=== PATIENT | female | born 1950 | race African-American/Black ===

== ENCOUNTER → 2019-05-13 | Outpatient (CLI) | payer OTHER ==
[~2019-05-13] VITALS: Ht 165.1 cm; Wt 75.3 kg
[~2019-05-13] MED LIST: ABILIFY 2 MG2 M1 PO; ALEVE220 M1 PO; AMITIZA 24 MCG24 MC1 PO; BENTYL 20 MG TA20 M1 PO; CLARITIN10 M3 PO; CYMBALTA60 MG PO; FISH OIL 1,001000 M3 PO; LIPITOR 20 MG T20 M1 PO; MOBIC15 MG PO; OMEPRAZOLE 20 M20 M1 PO; VITAMIN C250 MG PO; VITAMIN D22000 UNIT PO; VITAMIN E1000 UNIT PO; XANAX 0.5 MG0.5 MG PO; juice plus PO
[2019-05-13 13:40] VITALS: BP 131/77
--- NOTE | 2019-05-13 13:45 | NUR ---
Pain Clinic Assessment: 1. History of Osteoarthritis: right wrist right elbow History of Rheumatoid Arthritis: Not Applicable 2. Height: 5 ft. 5 in. 165.1 cm. Weight: 166.0 lb. oz. 75.297 kg. Patient's BMI: 27.6 3. Vital Signs: BP: 131/77 Pulse: 79 Resp: 16 Temp: 02 Sat: 100 ECG Mon: 4. Pain Intensity: 8 when on right side 5. Fall Risk: Dizziness: N Needs help standing or walking: N Fallen in the last 3 months: N Fall risk comments: 6. Patient on Blood Thinner: None 7. History of Hypertension: N 8. Opioid Therapy greater than 6 weeks: N Opiate Contract Signed: 9. Risk Assessment Tool Provided: low-1 10. Functional Assessment Tool: 0 11. Recreational Drug Use: Never Drug Type: Tobacco Use: Never Smoker Tobacco Type: Amount or Packs/day: How Many Years: Alcohol Use: Yes Frequency: Special Occasions Quant: 1
--- NOTE | 2019-05-25 09:02 | HPC ---
[facility] [place] [address] PAIN MANAGEMENT CONSULTATION Name: FAVIOLA SAUNDERS Room #: REG GEORGIE RuizDuranMeganDuran#: [id number] Admission: 05/13/19 Attend Phys: Renetta Salter MD Discharge: Date of : 52 Report #: [id number] THIS REPORT FOR: cc: Adele Tineo MD,Adele Salter,Renetta Friedman MD ~ CC: Adele Salter DATE OF SERVICE: 05/13/2019 CHIEF COMPLAINT: Pain in the right hip area. HISTORY: The patient is a 68-year-old female who has been referred to the pain clinic because of pain and discomfort involving her right side. Sometimes has some pain that radiates into the right groin area. States that she has used a roll of towels on the left side, sometimes to take the pressure off. She has not had physical therapy. She has not had chiropractic treatment. Notes that the pain is most problematic if she is lying down and when she turns over onto the affected side. Does have some pain in her right knee. Pain has been more problematic over the last couple of months. Describes her discomfort as periodic, primarily painful when she lies on her right side. Also, describes it as crushing. Rates it as a 0/10 today. ALLERGIES: No known drug allergies. CURRENT MEDICATIONS: Amitiza b.i.d., Xanax 0.5 mg t.i.d., Lipitor 20 mg, Loratadine 10 mg, Duloxetine 60 mg, omeprazole 40 mg, dicyclomine 20 mg 4 times daily, Abilify 2 mg has been used in the past, but discontinued, Trintellix 20 mg and 10 mg, tramadol 50 mg p.r.n. every 8 hours, Effexor XR 150 mg. PAST MEDICAL HISTORY: Irritable bowel syndrome, hypercholesterolemia, depression/anxiety, ulcers and glaucoma. PAST SURGICAL HISTORY: Colon surgery 2016 and the cyst removal on the left wrist 2017, hysterectomy was in 2003, fibroid tumors in both breasts, ulcer. SOCIAL HISTORY: She is retired. REVIEW OF SYSTEMS: Generally good health, wears glasses, depression, insomnia. LABORATORY DATA: No new laboratory values are available at the time of our interview. PAIN CLINIC ASSESSMENT AND PQRS: [address] [address] PAIN MANAGEMENT CONSULTATION Name: FAVIOLA SAUNDERS Room #: REG [facility]PITAL[facility] [id number] Admission: 05/13/19 Attend Phys: Renetta Salter MD Discharge: Date of : 52 Report #: [id number] 1. History of osteoarthritis, right wrist and right elbow. The patient is not being treated for rheumatoid arthritis. 2. Height 5 feet 5 inches, weight 166 pounds, BMI is 27.6. 3. Vital Signs: Blood pressure 131/77, pulse 79, respiratory rate 16, room air saturation is 100%. 4. Pain intensity 8/10 on the right side. 5. Fall history: The patient has not fallen in the last 3 months. 6. Blood thinner. The patient is not on a blood thinning medication. 7. Hypertension. The patient is not being treated for hypertension. 8. Opioids greater than 6 weeks. The patient receives medication from her primary physician. 9. Risk assessment tool, low for opioid use. 10. Functional assessment tool today. Pain score 0/70. 11. Recreational drug use: The patient denies. 12. Tobacco: The patient has never smoked. 13. Alcohol: The patient occasionally drinks an alcoholic beverage. PHYSICAL EXAMINATION: GENERAL: The patient is a well-developed, well-nourished black female, appears her stated age. She is alert and oriented x 3. Her affect is appropriate. Speech is fluent. HEENT: Normocephalic, atraumatic. Extraocular eye muscles intact. Sclerae nonicteric. The patient is wearing glasses. NECK: Without adenopathy or JVD. HEART: Regular rate. ABDOMEN: Nontender. MUSCULOSKELETAL: Upper extremity muscle strength judged to be 5/5 for the major muscle groups in the upper extremity. HEART: Regular rate. LUNGS: Clear to auscultation. Deep tendon reflexes are +1 for the biceps bilaterally, trace at the knees. Anterior and posterior spring tests are negative. Forward bending to toes was not problematic. Lumbar extension was not problematic. Ayden sign is negative. The patient does complain of some pain and discomfort on the right lateral side in an area consistent with the lateral femoral cutaneous nerve distribution. She is not having pain or discomfort at this point. Palpation in this area was not very uncomfortable. The patient states she sometimes has pain in the left groin area, but is not having any pain in this area today. IMPRESSION: 1. Right lateral cutaneous hip pain and discomfort. 2. Irritable bowel syndrome. 3. Hypercholesterolemia. 4. Depression/anxiety. 5. Ulcers. 6. Glaucoma. [facility] [address] [place] [address] PAIN MANAGEMENT CONSULTATION Name: FAVIOLA SAUNDERS Room #: REG GEORGIE Rosenbaum#: [id number] Admission: 05/13/19 Attend Phys: Renetta Salter MD Discharge: Date of : 52 Report #: [id number] RECOMMENDATIONS: We discussed treatment options with the patient. At this juncture, the patient is not having pain or discomfort. The possible treatment for lateral femoral cutaneous nerve irritation was discussed. It includes injecting the lateral femoral cutaneous nerve with local anesthetic and steroid. Given that the patient is not having pain today, she declines an injection. She can return to the pain clinic at any time should her pain become more problematic. We will have the patient try a conservative approach. She will be given a Medrol Dosepak to take. Also, the possibility of gabapentin was discussed. We explained that these anti-seizure type medications can be helpful sometimes when patients have pain and discomfort involving nerves. We would like to thank you for letting us participate in her care. We hope she continues to improve. <ELECTRONICALLY SIGNED> By: Renetta Salter MD 05/25/19 [id number] [id number] Renetta Salter MD /nt
== END ==
LOC: PAIN 07:37
DX: M25.551 Pain in right hip (principal); K58.9 Irritable bowel syndrome, unspecified; E78.00 Pure hypercholesterolemia, unspecified; H40.9 Unspecified glaucoma; F41.9 Anxiety disorder, unspecified; F32.9 Major depressive disorder, single episode, unspecified; Z90.49 Acquired absence of other specified parts of digestive tract; Z90.710 Acquired absence of both cervix and uterus; Z79.891 Long term (current) use of opiate analgesic; Z79.899 Other long term (current) drug therapy